=== PATIENT | female | born 1995 | race Caucasian/White ===

== ENCOUNTER 2020-10-02 12:28 | Day surgery (SDC) | payer OTHER, MEDICAID ==
[2020-10-02] MEDS ORDERED: Sodium Chloride 0.9% 10 ML Syringe FLUSH PRN (13:37)
--- NOTE | 2020-10-02 13:54 | EDM.PDOC ---
ED HPI GENERAL MEDICAL PROBLEM - General Chief Complaint: Gastrointestinal Problem Stated Complaint: GALLBLADDER PAIN Time Seen by Provider: 10/02/20 13:14 Source of Information: Reports: Patient History Limitations: Reports: No Limitations - History of Present Illness INITIAL COMMENTS - FREE TEXT/NARRATIVE: 25-year-old female presents the emergency department after being seen twice in the past 24 hours in the emergency department in [place]. Per the patient report she is normally healthy and has no medical problems. She states she woke yesterday morning with upper abdominal pain which felt like someone was stabbing her. She states that it was constant. She states that the night prior she had steak and bread for supper. She elected to go to the ER yesterday morning where they treated her with a GI cocktail and some IV fluids. She states this did seem to resolve her pain however she woke at 2 AM this morning and the pain had returned. She states that last night for supper she had macaroni and cheese. While in the ER at 2 AM this morning, they elected to do a CT scan. They told her that her gallbladder was inflamed and that she would need to have a g allbladder ultrasound however they were not able to complete that. She was sent home with tramadol. She states she did try to call around to get a gallbladder ultrasound however was not able to get this scheduled until a week out. She states she does not want to have another episode tonight in the middle the night. Currently she is not having any abdominal discomfort and states she feels fine. She has not had any fever or chills, she has not had any nausea vomiting or diarrhea associated with the abdominal pain. She has not had any headache, cough or shortness of breath or any flulike symptoms. She states she has healthy. She does not have a primary care provider. She does not take any prescription medications. She does not smoke and rarely drinks alcohol. 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 Meds Pnv No.95/Ferrous Fum/Folic AC [ Tablet] 1 tab PO DAILY 01/10/19 [History] Docusate Sodium [Colace] 100 mg PO BID PRN cap 03/29/20 [Rx] Ibuprofen [Motrin] 800 mg PO Q6H PRN tablet 03/29/20 [Rx] Past Medical History HEENT History: Reports: Impaired Vision Cardiovascular History: Reports: None Respiratory History: Reports: None Gastrointestinal History: Reports: GERD Other Gastrointestinal History: started over the last 2 months of Genitourinary History: Reports: None 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: Musculoskeletal History: Reports: Other (See Below) Other Musculoskeletal History: broken right ankle Neurological History: Reports: None Psychiatric History: Reports: None Endocrine/Metabolic History: Reports: Obesity/BMI 30+ Hematologic History: Reports: None Immunologic History: Reports: None Oncologic (Cancer) History: Reports: None Dermatologic History: Reports: None - Infectious Disease History Infectious Disease History: Reports: Chicken Pox - Past Surgical History Musculoskeletal Surgical History: Reports: ORIF Other Musculoskeletal Surgeries/Procedures:: right ankle surgery Social & Family History - Family History Cardiac: Reports: Heart Failure, Hypertension, [place], Stent OBGYN: Reports: Neurological: Reports: Alzheimers Disease, Dementia Oncologic: Reports: Liver Other Oncologic Family History: s - Tobacco Use Tobacco Use Status *Q: Current Some Day Tobacco User Years of Tobacco use: 8 Packs/Tins Daily: 0.2 - Caffeine Use Caffeine Use: Reports: None - Recreational Drug Use Recreational Drug Use: No ED ROS GENERAL - Review of Systems Review Of Systems: Comprehensive ROS is negative, except as noted in HPI. ED EXAM, GI/ABD - Physical Exam Exam: See Below Exam Limited By: No Limitations General Appearance: Alert, WD/WN, No Apparent Distress Ears: Normal External Exam, Hearing Grossly Normal Nose: Normal Inspection Throat/Mouth: Normal Inspection, Normal Lips, Normal Voice, No Airway Compromise Head: Atraumatic Neck: Normal Inspection, Supple Respiratory/Chest: No Respiratory Distress, Lungs Clear, Normal Breath Sounds, No Accessory Muscle Use, Chest Non-Tender Cardiovascular: Normal Peripheral Pulses, Regular Rate, Rhythm, No Edema, No Murmur GI/Abdominal Exam: Normal Bowel Sounds, Soft, Non-Tender, No Distention (Female) Exam: Deferred Rectal (Female) Exam: Deferred Back Exam: Normal Inspection, Full Range of Motion Extremities: Normal Inspection, Normal Range of Motion, Non-Tender, No Pedal Edema, Normal Capillary Refill Neurological: Alert, Oriented, Normal Cognition, Normal Gait Psychiatric: Normal Affect, Normal Mood Skin Exam: Warm, Dry, Intact, Normal Color, No Rash Lymphatic: No Adenopathy Course - Vital Signs Text/Narrative:: As stated above patient had 2 episodes of severe upper abdominal pain in the last 24 hours and was seen and treated in the ER in [place]. Patient did have a CT scan completed and was told her gallbladder was inflamed. Currently not have any symptoms. I have ordered labs to include a CBC, CMP, magnesium level, C-reactive protein, lipase and a GGT. Last Recorded V/S: Last Vital Signs Temp 98 F 10/02/20 13:16 Pulse 81 10/02/20 13:16 Resp 16 10/02/20 13:16 BP 119/71 10/02/20 13:16 Pulse Ox 100 10/02/20 13:16 - Orders/Labs/Meds Orders: Active Orders 24 hr Category Date Time Status Admission Status [Patient Status] [ADT] Routine ADT 10/02/20 17:42 Active Abdomen Ltd [US] Stat Exams 10/02/20 15:04 Taken CORONAVIRUS COVID-19 DEL [MOLEC] Stat Lab 10/02/20 16:47 Received Urine HCG [HCG QUALITATIVE,URINE] [URCHEM] Stat Lab 10/02/20 17:46 Ordered Sodium Chloride 0.9% [Saline Flush] Med 10/02/20 13:37 Active 10 ml FLUSH ASDIRECTED PRN ceFAZolin [Ancef 1 GM/50 ML] 1 gm Med 10/02/20 17:44 Ordered Premix Bag 1 bag IV ONETIME Saline Lock Insert [OM.PC] Stat Oth 10/02/20 13:37 Ordered Schedule Procedure [COMM] Stat Oth 10/02/20 17:43 Ordered Medication Orders Cefazolin Sodium/Dextrose 1 gm (/ Premix) 50 mls @ 100 mls/hr IV ONETIME ONE Stop: 10/02/20 18:13 Sodium Chloride (Sodium Chloride 0.9% 10 Ml Syringe) 10 ml FLUSH ASDIRECTED PRN PRN Reason: Keep Vein Open Labs: Laboratory Tests 10/02/20 10/02/20 10/02/20 Range/Units 14:09 14:09 14:09 WBC 8.38 (3.98-10.04) K/mm3 RBC 4.30 (3.98-5.22) M/mm3 Hgb 10.6 L (11.2-15.7) gm/dl Hct 33.7 L (34.1-44.9) % MCV 78.4 L (79.4-94.8) fl MCH 24.7 L (25.6-32.2) pg MCHC 31.5 L (32.2-35.5) g/dl RDW Std Deviation 41.8 (36.4-46.3) fL Plt Count 250 (182-369) K/mm3 MPV 10.9 (9.4-12.3) fl Neut % (Auto) 72.4 H (34.0-71.1) % Lymph % (Auto) 20.2 (19.3-51.7) % Charlton % (Auto) 5.6 (4.7-12.5) % Eos % (Auto) 1.6 (0.7-5.8) Baso % (Auto) 0.1 (0.1-1.2) % Neut # (Auto) 6.07 (1.56-6.13) K/mm3 Lymph # (Auto) 1.69 (1.18-3.74) K/mm3 Charlton # (Auto) 0.47 H (0.24-0.36) K/mm3 Eos # (Auto) 0.13 (0.04-0.36) K/mm3 Baso # (Auto) 0.01 (0.01-0.08) K/mm3 Sodium 141 (136-145) mEq/L Potassium 3.9 (3.5-5.1) mEq/L Chloride 106 (98-107) mEq/L Carbon Dioxide 26 (21-32) mEq/L Anion Gap 12.9 (5-15) BUN 12 (7-18) mg/dL Creatinine 0.8 (0.55-1.02) mg/dL Est Cr Clr Drug Dosing 100.63 mL/min Estimated GFR (MDRD) > 60 (>60) mL/min BUN/Creatinine Ratio 15.0 (14-18) Glucose 76 (70-99) mg/dL Calcium 8.8 (8.5-10.1) mg/dL Magnesium 1.9 (1.8-2.4) mg/dL Total Bilirubin 0.5 (0.2-1.0) mg/dL GGT 23 (5-55) U/L AST 23 (15-37) U/L ALT 41 (14-59) U/L Alkaline Phosphatase 67 (46-116) U/L C-Reactive Protein 0.9 (<1.0) mg/dL Total Protein 7.4 (6.4-8.2) g/dl Albumin 3.4 (3.4-5.0) g/dl Globulin 4.0 gm/dL Albumin/Globulin Ratio 0.9 L (1-2) Lipase 73 (73-393) U/L Meds: Medications Generic Name Dose Route Start Last Admin Trade Name Freq PRN Reason Stop Dose Admin Cefazolin Sodium/Dextrose 1 gm 50 mls @ 100 mls/hr 10/02/20 17:44 / Premix IV 10/02/20 18:13 ONETIME ONE Sodium Chloride 10 ml 10/02/20 13:37 Sodium Chloride 0.9% 10 Ml Syringe FLUSH ASDIRECTED PRN Keep Vein Open - Re-Assessments/Exams Free Text/Narrative Re-Assessment/Exam: 10/02/20 15:07 Hematology reveals a WBC of 8.38, hemoglobin 10.6, hematocrit 33.7, platelet count 250 Chemistry is completely unremarkable, GGT 23, lipase 73, C-reactive protein 0.9 I have ordered an abdominal ultrasound to rule out gallbladder 10/02/20 16:22 vRad radiologist impression ultrasound of the abdomen right upper quadrant; 1. Gallstones, wall thickening, and a positive Chaudhry sign. This is concerning for acute cholecystitis. 2. Evidence of mild hepatic steatosis and focal fatty sparing. 10/02/20 16:45 Dr. Yanez is on his way to the emergency department to see another patient that is here. I will have him see the patient as well. 10/02/20 17:[address] Yanez on the phone and he states he will be in to see her shortly. 10/02/20 17:46 Dr. Yanez is here to evaluate the patient and he is going to be taking her to surgery for cholecystectomy. He request that I order for the patient to receive 1 g of Ancef IV. Departure - Departure Time of Disposition: 17:47 Disposition: DC/Tfer to [facility] Condition: Good Clinical Impression: Cholecystitis, acute - Discharge Information Referrals: Aminata English MD [Primary Care Provider] - Forms: ED Department Discharge Sepsis Event Note (ED) - Evaluation Sepsis Screening Result: No Definite Risk - Focused Exam Vital Signs: Vital Signs Temp Pulse Resp BP Pulse Ox 10/02/20 13:16 98 F 81 16 119/71 100 - My Orders Last 24 Hours: My Active Orders 10/02/20 13:37 Sodium Chloride 0.9% [Saline Flush] 10 ml FLUSH ASDIRECTED PRN Saline Lock Insert [OM.PC] Stat 10/02/20 15:04 Abdomen Ltd [US] Stat 10/02/20 16:47 CORONAVIRUS COVID-19 DEL [MOLEC] Stat 10/02/20 17:42 Admission Status [Patient Status] [ADT] Routine 10/02/20 17:43 Schedule Procedure [COMM] Stat 10/02/20 17:44 ceFAZolin [Ancef 1 GM/50 ML] 1 gm Premix Bag 1 bag IV ONETIME 10/02/20 17:46 Urine HCG [HCG QUALITATIVE,URINE] [URCHEM] Stat - Assessment/Plan Last 24 Hours: My Active Orders 10/02/20 13:37 Sodium Chloride 0.9% [Saline Flush] 10 ml FLUSH ASDIRECTED PRN Saline Lock Insert [OM.PC] Stat 10/02/20 15:04 Abdomen Ltd [US] Stat 10/02/20 16:47 CORONAVIRUS COVID-19 DEL [MOLEC] Stat 10/02/20 17:42 Admission Status [Patient Status] [ADT] Routine 10/02/20 17:43 Schedule Procedure [COMM] Stat 10/02/20 17:44 ceFAZolin [Ancef 1 GM/50 ML] 1 gm Premix Bag 1 bag IV ONETIME 10/02/20 17:46 Urine HCG [HCG QUALITATIVE,URINE] [URCHEM] Stat
[2020-10-02] MEDS ORDERED: ceFAZolin 1 GM in Premix Bag 1 BAG IV ONE (17:44)
--- NOTE | 2020-10-02 18:03 | PCM.PREANE ---
Preanesthetic Assessment - Procedure Proposed Procedure: Laparoscopic Cholecystectomy - Anesthesia/Transfusion/Family Hx Anesthesia History: Prior Anesthesia Without Reaction Family History of Anesthesia Reaction: No Transfusion History: No Prior Transfusion(s) Intubation History: Unknown - Review of Systems General: No Symptoms Pulmonary: No Symptoms (smoke: 10 cigarettes/day, ETOH: rarely) Cardiovascular: No Symptoms Gastrointestinal: No Symptoms (GERD-occasionally), Abdominal Pain (0/10), Diarrhea (yesterday) Neurological: No Symptoms Other: Reports: None - Physical Assessment NPO Status Date: 10/02/20 NPO Status Time: 08:00 Vital Signs: Last Vital Signs Temp 36.6 C 10/02/20 13:16 Pulse 81 10/02/20 13:16 Resp 16 10/02/20 13:16 BP 119/71 10/02/20 13:16 Pulse Ox 100 10/02/20 13:16 Height: 1.68 m Weight: 87.997 kg ASA Class: 2E Mental Status: Alert & Oriented x3 Airway Class: Mallampati = 2 Dentition: Reports: Normal Dentition, Caries Thyro-Mental Finger Breadths: 3 Mouth Opening Finger Breadths: 3 (right nare piercing noted.) ROM/Head Extension: Full Lungs: Clear to Auscultation, Normal Respiratory Effort Cardiovascular: Regular Rate, Regular Rhythm, No Murmurs - Lab Values: Laboratory Last Values WBC 8.38 K/mm3 (3.98-10.04) 10/02/20 14:09 RBC 4.30 M/mm3 (3.98-5.22) 10/02/20 14:09 Hgb 10.6 gm/dl (11.2-15.7) L 10/02/20 14:09 Hct 33.7 % (34.1-44.9) L 10/02/20 14:09 MCV 78.4 fl (79.4-94.8) L 10/02/20 14:09 MCH 24.7 pg (25.6-32.2) L 10/02/20 14:09 MCHC 31.5 g/dl (32.2-35.5) L 10/02/20 14:09 RDW Std Deviation 41.8 fL (36.4-46.3) 10/02/20 14:09 Plt Count 250 K/mm3 (182-369) 10/02/20 14:09 MPV 10.9 fl (9.4-12.3) 10/02/20 14:09 Neut % (Auto) 72.4 % (34.0-71.1) H 10/02/20 14:09 Lymph % (Auto) 20.2 % (19.3-51.7) 10/02/20 14:09 Coffey % (Auto) 5.6 % (4.7-12.5) 10/02/20 14:09 Eos % (Auto) 1.6 (0.7-5.8) 10/02/20 14:09 Baso % (Auto) 0.1 % (0.1-1.2) 10/02/20 14:09 Neut # (Auto) 6.07 K/mm3 (1.56-6.13) 10/02/20 14:09 Lymph # (Auto) 1.69 K/mm3 (1.18-3.74) 10/02/20 14:09 Coffey # (Auto) 0.47 K/mm3 (0.24-0.36) H 10/02/20 14:09 Eos # (Auto) 0.13 K/mm3 (0.04-0.36) 10/02/20 14:09 Baso # (Auto) 0.01 K/mm3 (0.01-0.08) 10/02/20 14:09 Sodium 141 mEq/L (136-145) 10/02/20 14:09 Potassium 3.9 mEq/L (3.5-5.1) 10/02/20 14:09 Chloride 106 mEq/L (98-107) 10/02/20 14:09 Carbon Dioxide 26 mEq/L (21-32) 10/02/20 14:09 Anion Gap 12.9 (5-15) 10/02/20 14:09 BUN 12 mg/dL (7-18) 10/02/20 14:09 Creatinine 0.8 mg/dL (0.55-1.02) 10/02/20 14:09 Est Cr Clr Drug Dosing 100.63 mL/min 10/02/20 14:09 Estimated GFR (MDRD) > 60 mL/min (>60) 10/02/20 14:09 BUN/Creatinine Ratio 15.0 (14-18) 10/02/20 14:09 Glucose 76 mg/dL (70-99) 10/02/20 14:09 Calcium 8.8 mg/dL (8.5-10.1) 10/02/20 14:09 Magnesium 1.9 mg/dL (1.8-2.4) 10/02/20 14:09 Total Bilirubin 0.5 mg/dL (0.2-1.0) 10/02/20 14:09 GGT 23 U/L (5-55) 10/02/20 14:09 AST 23 U/L (15-37) 10/02/20 14:09 ALT 41 U/L (14-59) 10/02/20 14:09 Alkaline Phosphatase 67 U/L (46-116) 10/02/20 14:09 C-Reactive Protein 0.9 mg/dL (<1.0) 10/02/20 14:09 Total Protein 7.4 g/dl (6.4-8.2) 10/02/20 14:09 Albumin 3.4 g/dl (3.4-5.0) 10/02/20 14:09 Globulin 4.0 gm/dL 10/02/20 14:09 Albumin/Globulin Ratio 0.9 (1-2) L 10/02/20 14:09 Lipase 73 U/L (73-393) 10/02/20 14:09 SARS-CoV-2 RNA (DEL) Negative (NEGATIVE) 10/02/20 16:47 All labs reviewed and noted and within acceptable ranges to proceed with procedure. 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 - Anesthesia Plan Pre-Op Medication Ordered: None - Acknowledgements Anesthesia Type Planned: General Anesthesia Pt an Appropriate Candidate for the Planned Anesthesia: Yes Alternatives and Risks of Anesthesia Discussed w Pt/Guardian: Yes Pt/Guardian Understands and Agrees with Anesthesia Plan: Yes PreAnesthesia Questionnaire HEENT History: Reports: Impaired Vision Cardiovascular History: Reports: None Respiratory History: Reports: None Gastrointestinal History: Reports: GERD Other Gastrointestinal History: started over the last 2 months of Genitourinary History: Reports: None 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: Musculoskeletal History: Reports: Other (See Below) Other Musculoskeletal History: broken right ankle Neurological History: Reports: None Psychiatric History: Reports: None Endocrine/Metabolic History: Reports: Obesity/BMI 30+ Hematologic History: Reports: None Immunologic History: Reports: None Oncologic (Cancer) History: Reports: None Dermatologic History: Reports: None - Infectious Disease History Infectious Disease History: Reports: Chicken Pox - Past Surgical History Musculoskeletal Surgical History: Reports: ORIF Other Musculoskeletal Surgeries/Procedures:: right ankle surgery - SUBSTANCE USE Tobacco Use Status *Q: Current Some Day Tobacco User Tobacco Use Within Last Twelve Months: Cigarettes Recreational Drug Use History: No - HOME MEDS Home Medications: Home Meds Pnv No.95/Ferrous Fum/Folic AC [ Tablet] 1 tab PO DAILY 01/10/19 [History] Docusate Sodium [Colace] 100 mg PO BID PRN cap 03/29/20 [Rx] Ibuprofen [Motrin] 800 mg PO Q6H PRN tablet 03/29/20 [Rx] - CURRENT (IN HOUSE) MEDS Current Meds: Current Medications Cefazolin Sodium/Dextrose 1 gm (/ Premix) 50 mls @ 100 mls/hr IV ONETIME ONE Stop: 10/02/20 18:13 Sodium Chloride (Sodium Chloride 0.9% 10 Ml Syringe) 10 ml FLUSH ASDIRECTED PRN PRN Reason: Keep Vein Open
--- NOTE | 2020-10-02 18:03 | PCM.CONS ---
H&P History of Present Illness - General Date of Service: 10/02/20 Admit Problem/Dx: Admission Diagnosis/Problem Admission Diagnosis/Problem Cholecystitis Source of Information: Patient History Limitations: Reports: No Limitations - History of Present Illness Initial Comments - Free Text/Narative: The patient is a 25 yo F who started having acute once severe epigastric pain 5 am today. Pain was sharp. She went to [facility] ER where she was given a GI cocktail. Pain subsided and she went home. She had the pain again at 2 pm and went back to the ER where US was recommended but she could not obtain it there. She came to [facility] ER. US revealed gallstones, wall thickening and positive kessler sign. I was asked to see the patient. The pain had now subsided. LFTs are normal and Lipase is normal. 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: Home Meds Pnv No.95/Ferrous Fum/Folic AC [ Tablet] 1 tab PO DAILY 01/10/19 [History] Docusate Sodium [Colace] 100 mg PO BID PRN cap 03/29/20 [Rx] Ibuprofen [Motrin] 800 mg PO Q6H PRN tablet 03/29/20 [Rx] Past Medical History HEENT History: Reports: Impaired Vision Cardiovascular History: Reports: None Respiratory History: Reports: None Gastrointestinal History: Reports: GERD Other Gastrointestinal History: started over the last 2 months of Genitourinary History: Reports: None 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: Musculoskeletal History: Reports: Other (See Below) Other Musculoskeletal History: broken right ankle Neurological History: Reports: None Psychiatric History: Reports: None Endocrine/Metabolic History: Reports: Obesity/BMI 30+ Hematologic History: Reports: None Immunologic History: Reports: None Oncologic (Cancer) History: Reports: None Dermatologic History: Reports: None - Infectious Disease History Infectious Disease History: Reports: Chicken Pox - Past Surgical History Musculoskeletal Surgical History: Reports: ORIF Other Musculoskeletal Surgeries/Procedures:: right ankle surgery Social & Family History - Family History Cardiac: Reports: Heart Failure, Hypertension, CT, Stent OBGYN: Reports: Neurological: Reports: Alzheimers Disease, Dementia Oncologic: Reports: Liver Other Oncologic Family History: s - Tobacco Use Tobacco Use Status *Q: Current Some Day Tobacco User Years of Tobacco use: 8 Packs/Tins Daily: 0.2 - Caffeine Use Caffeine Use: Reports: None - Recreational Drug Use Recreational Drug Use: No H&P Review of Systems - Review of Systems: Review Of Systems: See Below General: Reports: No Symptoms HEENT: Reports: No Symptoms, Sinus Congestion Cardiovascular: Reports: No Symptoms Gastrointestinal: Reports: Abdominal Pain Genitourinary: Reports: No Symptoms Musculoskeletal: Reports: No Symptoms Skin: Reports: No Symptoms Psychiatric: Reports: No Symptoms Neurological: Reports: No Symptoms Hematologic/Lymphatic: Reports: No Symptoms Immunologic: Reports: No Symptoms Exam - Exam Exam: See Below - Vital Signs Vital Signs: Last Vital Signs Temp 98 F 10/02/20 13:16 Pulse 81 10/02/20 13:16 Resp 16 10/02/20 13:16 BP 119/71 10/02/20 13:16 Pulse Ox 100 10/02/20 13:16 Weight: 87.997 kg - Exam General: Alert, Oriented, Sedated Lungs: Clear to Auscultation, Normal Respiratory Effort Cardiovascular: Regular Rate, Regular Rhythm, Normal S1, Normal S2 GI/Abdominal Exam: Soft, Non-Tender, No Organomegaly, No Distention - Patient Data Lab Results Last 24 hrs: Laboratory Results - last 24 hr 10/02/20 10/02/20 10/02/20 Range/Units 14:09 14:09 14:09 WBC 8.38 (3.98-10.04) K/mm3 RBC 4.30 (3.98-5.22) M/mm3 Hgb 10.6 L (11.2-15.7) gm/dl Hct 33.7 L (34.1-44.9) % MCV 78.4 L (79.4-94.8) fl MCH 24.7 L (25.6-32.2) pg MCHC 31.5 L (32.2-35.5) g/dl RDW Std Deviation 41.8 (36.4-46.3) fL Plt Count 250 (182-369) K/mm3 MPV 10.9 (9.4-12.3) fl Neut % (Auto) 72.4 H (34.0-71.1) % Lymph % (Auto) 20.2 (19.3-51.7) % Saline % (Auto) 5.6 (4.7-12.5) % Eos % (Auto) 1.6 (0.7-5.8) Baso % (Auto) 0.1 (0.1-1.2) % Neut # (Auto) 6.07 (1.56-6.13) K/mm3 Lymph # (Auto) 1.69 (1.18-3.74) K/mm3 Saline # (Auto) 0.47 H (0.24-0.36) K/mm3 Eos # (Auto) 0.13 (0.04-0.36) K/mm3 Baso # (Auto) 0.01 (0.01-0.08) K/mm3 Sodium 141 (136-145) mEq/L Potassium 3.9 (3.5-5.1) mEq/L Chloride 106 (98-107) mEq/L Carbon Dioxide 26 (21-32) mEq/L Anion Gap 12.9 (5-15) BUN 12 (7-18) mg/dL Creatinine 0.8 (0.55-1.02) mg/dL Est Cr Clr Drug Dosing 100.63 mL/min Estimated GFR (MDRD) > 60 (>60) mL/min BUN/Creatinine Ratio 15.0 (14-18) Glucose 76 (70-99) mg/dL Calcium 8.8 (8.5-10.1) mg/dL Magnesium 1.9 (1.8-2.4) mg/dL Total Bilirubin 0.5 (0.2-1.0) mg/dL GGT 23 (5-55) U/L AST 23 (15-37) U/L ALT 41 (14-59) U/L Alkaline Phosphatase 67 (46-116) U/L C-Reactive Protein 0.9 (<1.0) mg/dL Total Protein 7.4 (6.4-8.2) g/dl Albumin 3.4 (3.4-5.0) g/dl Globulin 4.0 gm/dL Albumin/Globulin Ratio 0.9 L (1-2) Lipase 73 (73-393) U/L SARS-CoV-2 RNA (DEL) (NEGATIVE) 10/02/20 Range/Units 16:47 WBC (3.98-10.04) K/mm3 RBC (3.98-5.22) M/mm3 Hgb (11.2-15.7) gm/dl Hct (34.1-44.9) % MCV (79.4-94.8) fl MCH (25.6-32.2) pg MCHC (32.2-35.5) g/dl RDW Std Deviation (36.4-46.3) fL Plt Count (182-369) K/mm3 MPV (9.4-12.3) fl Neut % (Auto) (34.0-71.1) % Lymph % (Auto) (19.3-51.7) % Saline % (Auto) (4.7-12.5) % Eos % (Auto) (0.7-5.8) Baso % (Auto) (0.1-1.2) % Neut # (Auto) (1.56-6.13) K/mm3 Lymph # (Auto) (1.18-3.74) K/mm3 Saline # (Auto) (0.24-0.36) K/mm3 Eos # (Auto) (0.04-0.36) K/mm3 Baso # (Auto) (0.01-0.08) K/mm3 Sodium (136-145) mEq/L Potassium (3.5-5.1) mEq/L Chloride (98-107) mEq/L Carbon Dioxide (21-32) mEq/L Anion Gap (5-15) BUN (7-18) mg/dL Creatinine (0.55-1.02) mg/dL Est Cr Clr Drug Dosing mL/min Estimated GFR (MDRD) (>60) mL/min BUN/Creatinine Ratio (14-18) Glucose (70-99) mg/dL Calcium (8.5-10.1) mg/dL Magnesium (1.8-2.4) mg/dL Total Bilirubin (0.2-1.0) mg/dL GGT (5-55) U/L AST (15-37) U/L ALT (14-59) U/L Alkaline Phosphatase (46-116) U/L C-Reactive Protein (<1.0) mg/dL Total Protein (6.4-8.2) g/dl Albumin (3.4-5.0) g/dl Globulin gm/dL Albumin/Globulin Ratio (1-2) Lipase (73-393) U/L SARS-CoV-2 RNA (DEL) Negative (NEGATIVE) Result Diagrams: 10/02/20 14:09 10/02/20 14:09 Sepsis Event Note - Evaluation Sepsis Screening Result: No Definite Risk - Focused Exam Vital Signs: Vital Signs Temp Pulse Resp BP Pulse Ox 10/02/20 13:16 98 F 81 16 119/71 100 Consult PN Assessment/Plan Procedures: Procedures ASSAY OF BLOOD/URIC ACID (03/18/20) ASSAY OF PROTEIN URINE (03/18/20) ASSAY OF URINE CREATININE (03/18/20) BILE ACIDS TOTAL (02/05/20) HALINA DNA DIR PROBE (06/05/20) COMPLETE CBC AUTOMATED (03/18/20) COMPREHEN METABOLIC PANEL (03/18/20) CULTURE SCREEN ONLY (12/29/18) CYTOGEN M ARRAY COPY NO&SNP (10/17/18) CYTOMEG DNA AMP PROBE (10/17/18) DETECT AGENT NOS DNA AMP (10/17/18) EVAL AMNIOTIC FLUID PROTEIN (01/10/19) BIOPHYS PROFIL W/O NST (03/16/20) NON-STRESS TEST (03/18/20) DANIEL VAG DNA DIR PROBE (06/05/20) GLUCOSE TEST (01/15/20) ROUTINE VENIPUNCTURE (03/18/20) SARS-COV-2 COVID-19 AMP PRB (03/18/20) STREP B DNA AMP PROBE (03/13/20) SYPHILIS TEST NON-TREP QUAL (01/15/20) TRICHOMONAS VAGIN DIR PROBE (06/05/20) URINALYSIS AUTO W/O SCOPE (01/10/19) URINALYSIS AUTO W/SCOPE (03/16/20) URINE CULTURE/COLONY COUNT (06/28/18) Problem List Initiated/Reviewed/Updated: No Plan: Patient has symptoms concerning for acute cholecystitis vs recurrent biliary col ic. I recommended cholecystectomy either now or electively. The patient had 2 episodes of severe pain and would like to get the surgery now to avoid recurrent pain. We discussed risks, benefits and alternatives for surgery. Specific risks discussed include bleeding, infection, injury to adjacent structures, need for additional interventions. Informed consent was obtained.
[2020-10-02] MEDS ORDERED: Bupivacaine 0.5%/EPINEPHrine 1:200,000 50 ML MDV ONE (18:09)
[2020-10-02] MEDS ORDERED: ceFAZolin 1 GM Vial ONE (18:17)
[2020-10-02] MEDS ORDERED: Ketorolac 30 MG/ML SDV ONE (18:17)
[2020-10-02] MEDS ORDERED: Rocuronium 50 MG/5 ML Vial ONE (18:17)
[2020-10-02] MEDS ORDERED: Lactated Ringers 1,000 ML ONE ×2 (18:17→18:41)
[2020-10-02] MEDS ORDERED: Lidocaine 1% 4 ML ONE (18:17)
[2020-10-02] MEDS ORDERED: Ondansetron 4 MG/2 ML SDV ONE (18:17)
[2020-10-02] MEDS ORDERED: Dexamethasone 4 MG/ML 5 ML MDV ONE (18:17)
[2020-10-02] MEDS ORDERED: Midazolam 1 MG/ML 2 ML SDV ONE (18:18)
[2020-10-02] MEDS ORDERED: HYDROmorphone 0.5 MG/0.5 ML Syringe ONE ×2 (18:18→19:22)
[2020-10-02] MEDS ORDERED: Propofol 200 MG/20 ML SDV ONE (18:18)
[2020-10-02] MEDS ORDERED: fentaNYL 250 MCG/5 ML SDV ONE (18:19)
[2020-10-02] MEDS ORDERED: fentaNYL 100 MCG/2 ML SDV ONE (19:31)
[2020-10-02] MEDS ORDERED: diphenhydrAMINE 50 MG/ML SDV IVPUSH PRN (19:37)
[2020-10-02] MEDS ORDERED: ePHEDrine 50 MG/ML SDV IVPUSH PRN (19:37)
[2020-10-02] MEDS ORDERED: Albuterol 0.083% 2.5 MG/3 ML Neb Soln NEB PRN (19:37)
[2020-10-02] MEDS ORDERED: HYDROmorphone 0.5 MG/0.5 ML Syringe IVPUSH PRN (19:37)
[2020-10-02] MEDS ORDERED: fentaNYL 100 MCG/2 ML SDV IVPUSH PRN (19:37)
[2020-10-02] MEDS ORDERED: Ondansetron 4 MG/2 ML SDV IVPUSH PRN (19:37)
--- NOTE | 2020-10-02 20:34 | PCM.POSTAN ---
POST ANESTHESIA ASSESSMENT - MENTAL STATUS Mental Status: Alert - VITAL SIGNS Vital Signs: Last Vital Signs Temp 97.6 10/02/202026 Pulse 88 10/02/202026 Resp 19 10/02/202026 BP 131/71 10/02/202026 Pulse Ox 98% 10/02/202026 - RESPIRATORY Respiratory Status: Respiratory Rate WNL, Airway Patent, O2 Saturation Stable - CARDIOVASCULAR CV Status: Pulse Rate WNL, Blood Pressure Stable - GASTROINTESTINAL GI Status: No Symptoms - POST OP HYDRATION Hydration Status: Adequate & Stable
--- NOTE | 2020-10-02 20:42 | PCM48HPAN ---
Post Anesthesia Note - EVALUATION WITHIN 48HRS OF ANESTHETIC Vital Signs in Normal Range: Yes Patient Participated in Evaluation: Yes Respiratory Function Stable: Yes Airway Patent: Yes Cardiovascular Function Stable: Yes Hydration Status Stable: Yes Pain Control Satisfactory: Yes Nausea and Vomiting Control Satisfactory: Yes Mental Status Recovered: Yes Vital Signs: Last Vital Signs Temp 36.4 C 10/02/20 20:27 Pulse 88 10/02/20 20:27 Resp 19 10/02/20 20:27 BP 131/71 10/02/20 20:27 Pulse Ox 98 10/02/20 20:27
--- NOTE | 2020-10-02 21:08 | OR ---
DATE OF OPERATION: 10/02/2020 SURGEON: Nick Yanez MD PREOPERATIVE DIAGNOSIS: Acute cholecystitis. POSTOPERATIVE DIAGNOSIS: Acute cholecystitis. OPERATION PERFORMED: Laparoscopic cholecystectomy. ESTIMATED BLOOD LOSS: 10 mL. ANESTHESIA: General endotracheal and local 1% lidocaine. COMPLICATIONS: None. INDICATION AND CONSENT: Ms. Stovall is a 25-year-old female who woke up this morning a 5:00 a.m. with acute epigastric pain. The patient went to the [facility] ER. She was given a GI cocktail. The pain subsided. She returned home. The pain recurred again at 2:00 p.m. She went back to the ER, but the ultrasound of the right upper quadrant was not available. The patient came here to the [facility] ED, where an ultrasound was done and it showed acute cholecystitis. Labs were otherwise normal. I was asked to see the patient and discussed with the patient that cholecystectomy is indicated. The patient wanted to proceed with the procedure. We discussed risks, benefits, and alternative, and informed consent was obtained. DESCRIPTION OF PROCEDURE: The patient was taken to the operating room, placed in the supine position. A time-out was performed. Abdomen was prepped and draped in the usual sterile fashion. Preop antibiotics had already been given. This was 2 g of Ancef. General anesthesia was already induced. We began the procedure by injecting local anesthetic in the infraumbilical position. An incision was made here. Umbilical stalk was elevated with Andrew clamp and a Veress needle was placed. Abdomen was insufflated to 15 mmHg. Then, a 12 mm trocar was placed under direct visualization of the laparoscope. Upon examination of the abdomen, there were no obvious injuries. Three additional 5 mm trocars were placed, one in the subxiphoid area, and two in the right subcostal. Then, the patient was placed in the reverse Trendelenburg with left side down. The gallbladder was found, grasped and elevated cranially. There was a small amount of omental adhesions. These were taken down and then the triangle of Calot was dissected using cautery and [place] grasper. There was significant amount of edema at the Calot triangle during dissection. However, dissection was carried out safely, and critical angle of safety was obtained. Then, the cystic duct as well as cystic artery were clipped with 3 clips and transected such that 2 clips remained in situ. Then, the gallbladder was taken off the gallbladder fossa with cautery. Again, a significant amount of edema throughout the gallbladder fossa was noted. Once this was done, the gallbladder was then placed in the EndoCatch bag, and there was a very minor spillage of contents in the gallbladder fossa. Therefore, irrigation was performed. The dissection area was irrigated with 1 L of normal saline and suctioned out. EBL was minimal, about 10 mL. Once this was done, the gallbladder was removed through the infraumbilical incision. Then, during the removal of the gallbladder, we had to extend the fascia incision slightly to allow the stones within the gallbladder to pass. Then, the fascia at the infraumbilical site was closed with 0 Vicryl stitches using Aram- Lucy device, and skin at all 4 incisions were closed with 4-0 Monocryl. The procedure was concluded. The patient was awoken, extubated, and taken to the PACU for recovery. Patient may go home tonight or tomorrow, depending on how she recovers. Follow up with me in clinic in 3 weeks. MMODAL /[id number] LULI
--- NOTE | 2020-10-03 07:21 | US ---
Limited abdominal ultrasound: Multiple real-time images of the upper right abdomen were obtained. Comparison: No previous abdominal imaging is available. Findings: Liver shows no focal abnormality. Gallstones are seen within the gallbladder. Gallbladder is contracted around the gallstones. No comment about gallbladder wall thickening can be made. Biliary ducts appear normal in size. Proximal aorta shows no aneurysm. Inferior vena cava is patent. Right kidney shows no hydronephrosis or mass. Right kidney has a length of 9.9 cm. Pancreas is not completely seen. Visualized portions of the pancreas are within normal limits. The main portal vein shows normal hepatopedal flow. Impression: 1. Gallstones are seen. Gallbladder is contracted around these gallstones. Because of the gallbladder wall contraction, accurate measurement of the gallbladder wall is impossible. Please correlate with the patient's symptoms. No biliary duct dilatation is seen. 2. No additional abnormality is identified on right upper quadrant abdominal ultrasound exam. Diagnostic code #3 I agree with preliminary report from [facility], finalized on 10/02/20, 5:18 PM CDT, code 1
== END 2020-10-02 22:20 | disposition home or self-care (01) ==
LOC: JD.ED 12:28 → JD.SDS 17:49
PROVIDERS: ATTEND Surgery
DX: K80.12 Calculus of gallbladder with acute and chronic cholecystitis without obstruction (principal); Z01.812 Encounter for preprocedural laboratory examination; Z20.822 Contact with and (suspected) exposure to COVID-19; F17.210 Nicotine dependence, cigarettes, uncomplicated; E66.9 Obesity, unspecified; Z68.31 Body mass index [BMI] 31.0-31.9, adult
CPT/HCPCS: 36415; 47562; 76705; 80053; 81025; 82977; 83690; 83735; 85025; 86140; 87635; 99285; J0690; J1100; J1170; J1885; J2250; J2405; J2704; J2710; J3010; J3490; J7120; 00790; 99140; U0002